=== PATIENT | male | born 1975 | race African-American/Black ===

== ENCOUNTER 2022-03-05 04:43 | Emergency (ER) | payer MEDICAID ==
[~2022-03-05] VITALS: Ht 182.9 cm; Wt 82.7 kg
[~2022-03-05 04:43] MED LIST: DILANTIN 100MG100 MG PO
[2022-03-05 04:45] VITALS: BP 126/80
[2022-03-05] MEDS ORDERED: DILANTIN 100MG100 MG PO (06:31)
[2022-03-05 08:30] LABS: URINE APPEARANCE CLEAR; URINE COLOR YELLOW
[2022-03-05 08:31] LABS: URINE BILIRUBIN NEGATIVE (NEGATIVE); URINE GLUCOSE NEGATIVE (NEGATIVE); URINE KETONE NEGATIVE (NEGATIVE); URINE NITRATE NEGATIVE (NEGATIVE); URINE PROTEIN(semi-quant) 1+ (NEGATIVE); URINE UROBILINOGEN NORMAL (NORMAL)
[2022-03-05 08:32] LABS: URINE BLOOD TRACE (NEGATIVE); URINE LEUKOCYTE ESTERASE TRACE (NEGATIVE)
[2022-03-05 08:36] LABS: URINE MUCUS PRESENT (NOT PRESENT)
[2022-03-05 08:41] LABS: ALBUMIN 3.7 g/dL (3.5-5.0); CALCIUM 8.9 mg/dL (8.3-10.5); POTASSIUM 3.5 mmol/L (3.5-5.1); TOTAL BILIRUBIN 0.3 mg/dL (0.2-1.2); TOTAL PROTEIN 6.8 g/dL (6.4-8.3)
[2022-03-05 08:43] LABS: BASO # 0.01 K/mm3 (0.02-0.10); EOS # 0.12 K/mm3 (0.04-0.40); EOS % 1.8 % (0.0-4.0); HEMATOCRIT 41.9 % (42.0-52.0); HEMOGLOBIN 14.2 g/dL (13.5-18.0); LYMPH# 2.04 K/mm3 (1.50-4.00); MEAN CELL VOLUME 95 fl (78-100); MEAN CORPUSCULAR HEMOGLOBIN 32 pg (27-31); MEAN CORPUSCULAR HGB CONC 34 g/dL (33-37); MEAN PLATELET VOLUME 8.8 fl (7.4-10.4); MONO # 0.64 K/mm3 (0.20-0.80); NEU # 3.67 K/mm3 (1.40-6.50); PLATELET COUNT 239 K/mm3 (130-400); RED BLOOD COUNT 4.39 M/mm3 (4.20-5.60); RED CELL DISTRIBUTION WIDTH 13.4 % (11.5-14.5); WHITE BLOOD COUNT 6.5 K/mm3 (4.8-10.8)
[2022-03-05 13:32] LABS: PHENYTOIN (DILANTIN) 2.5 ug/mL (10.0-20.0)
== END 2022-03-05 09:40 | disposition home or self-care (01) ==
LOC: ED 04:43
PROVIDERS: Family Medicine
DX: G40.909 Epilepsy, unspecified, not intractable, without status epilepticus (principal); G47.33 Obstructive sleep apnea (adult) (pediatric)